=== PATIENT | male | born 1940 | race Caucasian/White ===

== ENCOUNTER 2024-07-22 09:28 | Outpatient (CLI) | payer MEDICARE, SELFPAY ==
--- NOTE | ~2024-07-22 | MR_ITS ---
MRI of the brain Clinical History: Double vision Technique: Axial and sagittal T1-weighted images were acquired. These were followed by axial T2-weigh marcos, diffusion weighted, gradient, and FLAIR images. Findings: There are multiple very small scattered foci of restricted diffusion, probably in the right MCA distribution/right periventricular white matter, with additional small foci in the right basal g anglia, right temporal lobe, and right occipital lobe. There is single small focus of restricted diff usion in the right cerebellum. There is a single small focus of restricted diffusion in the left julio cesar etal lobe. No intracranial hemorrhage evident. There is extensive background chronic microvascular ischemic change in the periventricular white jessica er bilaterally. Ventricles and subarachnoid spaces are mildly dilated. Orbits are unremarkable. Paranasal sinuses and mastoid air cells are clear. Major intracranial flow voids are intact. Sagittal midline structures are intact. 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 Findings are most related to embolic s howering. Severe background chronic microvascular ischemic changes. No intracranial hemorrhage. Reviewed, dictated and finalized at location . 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 Findings are most related to embolic showering. Severe background chronic microvascular ischemic changes. No intracranial hemorrhage.
== END 2024-07-22 09:29 | disposition home or self-care (01) ==
LOC: GOSHIMG 09:29
PROVIDERS: PCP Pediatrics; Visit Provider Pediatrics
DX: I67.82 Cerebral ischemia (principal)
CPT/HCPCS: 70551